=== PATIENT | female | born 1975 | race Caucasian/White ===

== ENCOUNTER → 2020-05-24 | Outpatient (CLI) | payer OTHER ==
[~2020-05-24] MED LIST: DOCU240C31 PO; IBUP-1222 PO; OXYC-302 PO
[2020-05-24 09:40] LABS: BASOPHILS # (AUTO) 0.04 x10^3/uL (0-0.1); BASOPHILS % (AUTO) 0 % (0-1); EOSINOPHILS % (AUTO) 2 % (1-7); LYMPHOCYTES % (AUTO) 32 % (22-44); MD NO; MEAN CORPUSCULAR HEMOGLOBIN 31.5 pg (27.0-34.8); MEAN CORPUSCULAR HGB CONC 33.3 g/dL (32.4-35.8); MEAN PLATELET VOLUME 8.1 fL (7.4-10.4); MONOCYTES # (AUTO) 0.48 x10^3/uL (0.2-0.8); MONOCYTES % (AUTO) 5 % (2-9); NEUTROPHILS # (AUTO) 6.15 x10^3/uL (1.8-6.8); NEUTROPHILS % (AUTO) 61 % (42-75); PLATELET COUNT 317 x10^3/uL (130-400); RED BLOOD COUNT 4.37 x10^6/uL (3.82-5.3)
[2020-05-24 09:53] LABS: ALANINE AMINOTRANSFERASE 162 U/L (12-78); ALBUMIN 3.5 g/dL (3.4-5.0); ANION GAP 6 mmol/L (5-15); CALCIUM 9.1 mg/dL (8.5-10.1); CHLORIDE 108 mmol/L (98-107); CREATININE 0.64 mg/dL (0.55-1.02)
[2020-05-24 10:03] LABS: ALKALINE PHOSPHATASE 100 U/L (45-117); BILIRUBIN,TOTAL 0.8 mg/dL (0.2-1.0); CHOL/HDL RATIO 3.2; CHOLESTEROL, TOTAL 177 mg/dL (140-239); HDL CHOL % 32 % (28-40); HDL CHOLESTEROL (DIRECT) 56 mg/dL (40-60); LDL CHOLESTEROL,CALCULATED 81 mg/dL (54-169); LDL/HDL RATIO 1.4 (0.5-3.0); TOTAL PROTEIN 7.8 g/dL (6.4-8.2); TRIGLYCERIDES 198 mg/dL (50-200); VLDL CHOLESTEROL 40 mg/dL (0-25)
== END | disposition home or self-care (01) ==
LOC: LAB 09:20
PROVIDERS: ATTEND Registered Nurse
DX: Z13.6 Encounter for screening for cardiovascular disorders (principal); Z72.51 High risk heterosexual behavior; Z68.41 Body mass index [BMI] 40.0-44.9, adult
CPT/HCPCS: 36415; 80053; 80061; 83036; 84443; 85025; 86592; 87806; G0475

== ENCOUNTER → 2020-06-04 | Outpatient (CLI) | payer OTHER ==
[2020-06-04 08:14] LABS: ALBUMIN 3.7 g/dL (3.4-5.0); BILIRUBIN, DIRECT 0.2 mg/dL (0.1-0.2)
[2020-06-04 08:17] LABS: BILIRUBIN,INDIRECT 0.4 mg/dL (0.0-2.0); BILIRUBIN,TOTAL 0.6 mg/dL (0.2-1.0); TOTAL PROTEIN 8.3 g/dL (6.4-8.2)
== END | disposition home or self-care (01) ==
LOC: LAB 07:44
PROVIDERS: ATTEND Registered Nurse
DX: R74.8 Abnormal levels of other serum enzymes (principal)
CPT/HCPCS: 36415; 80074; 80076; 82977

== ENCOUNTER 2020-06-08 20:20 | Emergency (ER) | payer SELFPAY ==
[~2020-06-08] VITALS: Ht 157.5 cm; Wt 104.8 kg
--- NOTE | 2020-06-08 21:13 | NUR ---
PT TO ED, FAMILY REPORTS PT WAS HAVING SHOULDER AND BACK PAIN EARLIER TONIGHT AND TOOK HER PAIN MEDICATION IN EXCESS. PT DROWSY BUT ALERT TO VOICE, AOX4. FAMILY AT BS FOR SUPPORT. MONITORING IN PLACE, CALL LIGHT WITHIN REACH, ALL SAFETY MEASURES IN PLACE.
[2020-06-08] MEDS ORDERED: KETOROLAC 30 MG/1 ML ONE (21:30)
[2020-06-08] MEDS ORDERED: KETOROLAC 30 MG/1 ML IM ONE (21:30)
--- NOTE | 2020-06-08 21:40 | NUR ---
PT MEDICATED PER MAR, MONITORING IN PLACE, CALL LIGHT WITHIN REACH, ALL SAFETY MEASURES IN PLACE, FAMILY AT FOR SUPPORT.
[2020-06-08 23:08] VITALS: BP 128/67
--- NOTE | 2020-06-08 23:08 | NUR ---
PT ABLE TO AMBUALTE WITH STEADY GAIT.
== END 2020-06-08 23:44 | disposition home or self-care (01) ==
LOC: ED 22:58
DX: T48.1X1A Poisoning by skeletal muscle relaxants [neuromuscular blocking agents], accidental (unintentional), initial encounter (principal); M54.9 Dorsalgia, unspecified; G89.29 Other chronic pain; M25.512 Pain in left shoulder; R00.0 Tachycardia, unspecified; Y92.9 Unspecified place or not applicable
CPT/HCPCS: 73030; 93005; 96372; 99283; J1885

== ENCOUNTER 2020-07-10 08:03 | Outpatient (CLI) | payer OTHER ==
[2020-07-10 08:47] LABS: ALBUMIN 3.8 g/dL (3.4-5.0); ANION GAP 4 mmol/L (5-15); CHLORIDE 108 mmol/L (98-107)
[2020-07-10 08:56] LABS: % IRON SATURATION 25 % (20-55); ALANINE AMINOTRANSFERASE 180 U/L (12-78); ALKALINE PHOSPHATASE 114 U/L (45-117); BILIRUBIN,TOTAL 0.7 mg/dL (0.2-1.0); CREATININE 0.69 mg/dL (0.55-1.02); IRON LEVEL 84 mcg/dL (50-170); TOTAL IRON BINDING CAPACITY 335 mcg/dL (250-450); TOTAL PROTEIN 8.5 g/dL (6.4-8.2); TRANSFERRIN 304 mg/dL (200-360)
== END 2020-07-10 23:59 | disposition home or self-care (01) ==
LOC: LAB 08:03
PROVIDERS: ATTEND Internal Medicine
DX: R77.8 Other specified abnormalities of plasma proteins (principal); R79.89 Other specified abnormal findings of blood chemistry
CPT/HCPCS: 36415; 80053; 82103; 82728; 83516; 83540; 83550; 84443; 84466

== ENCOUNTER 2020-12-29 08:42 | Outpatient (CLI) | payer OTHER ==
[~2020-12-29 08:42] MED LIST changes: -OXYC-302 PO; +OXYC1TAB12 PO
[2020-12-29 09:22] LABS: ALANINE AMINOTRANSFERASE 37 U/L (12-78); ALBUMIN 3.7 g/dL (3.4-5.0); ANION GAP 5 mmol/L (5-15); CALCIUM 8.8 mg/dL (8.5-10.1); CHLORIDE 109 mmol/L (98-107); CREATININE 0.64 mg/dL (0.55-1.02)
[2020-12-29 09:25] LABS: ALKALINE PHOSPHATASE 71 U/L (45-117); BILIRUBIN,TOTAL 0.9 mg/dL (0.2-1.0); TOTAL PROTEIN 7.6 g/dL (6.4-8.2)
== END 2020-12-29 23:59 | disposition home or self-care (01) ==
LOC: LAB 08:42
PROVIDERS: ATTEND Internal Medicine
DX: R79.89 Other specified abnormal findings of blood chemistry (principal); B17.9 Acute viral hepatitis, unspecified
CPT/HCPCS: 36415; 80053